=== PATIENT | male | born 1940 | race Caucasian/White ===

== ENCOUNTER 2017-02-25 08:00 | Outpatient (RCR) | payer MEDICARE, OTHER ==
[2017-02-18 08:23] VITALS: BP 154/79
[2017-02-18 08:48] LABS: PLATELET COUNT, AUTOMATED 213 K/uL (150-450)
[~2017-02-25] VITALS: Ht 182.9 cm; Wt 107.4 kg
[~2017-02-25 08:00] MED LIST: ALL100 PO; ASPI-715 PO; DEXTROSE 5%(*) 100 ML BAG 100 ML IVPB PRN; EZET1TAB55 PO; LIDOCAINE/SOD BICARB 8.4% SYR ID PRN; NS(*) 0.9% 100 ML BAG 100 ML IVPB PRN
[2017-02-25 08:17] VITALS: BP 158/75
[2017-02-25] MEDS ORDERED: INFLIXIMAB IVPB ONE (09:30)
[2017-02-25] MEDS ORDERED: NS 0.9% IVPB ONE (09:30)
[2017-02-25 11:50] VITALS: BP 151/77
[2017-04-29 08:08] VITALS: BP 145/74
[2017-04-29] MEDS ORDERED: INFLIXIMAB IVPB ONE (09:30)
[2017-04-29] MEDS ORDERED: NS 0.9% IVPB ONE (09:30)
== END 2017-05-18 ==
LOC: SPU 08:00
PROVIDERS: ATTEND Internal Medicine Gastroenterology
DX: K50.80 Crohn's disease of both small and large intestine without complications (principal)
CPT/HCPCS: 85025; 96413; 96415; J1745; J7050; 82040; 82247; 82310; 82374; 82435; 82565; 82947; 84075; 84132; 84155; 84295; 84450; 84460; 84520

== ENCOUNTER → 2017-08-10 | Outpatient (CLI) | payer MEDICARE, OTHER ==
[~2017-08-10] MED LIST changes: +AMLO1TAB52 PO; +ATOR40TA24 PO; -DEXTROSE 5%(*) 100 ML BAG 100 ML IVPB PRN; +FENO45CA; +IOPAMIDOL 76% 75 ML INFUS BTL 75 ML ONE; -LIDOCAINE/SOD BICARB 8.4% SYR ID PRN; -NS(*) 0.9% 100 ML BAG 100 ML IVPB PRN; +OLME1TAB60 PO
--- NOTE | 2017-08-10 11:44 | RADIOLOGY IMAGING REPORT ---
FAC[place] [facility] [place] NAME: Baljeet Ingram : 1940 MR: [id number] V: [id number] EXAM DATE: ORDERING PHYSICIAN: BRIONNA BRAVO TECHNOLOGIST: Location: [facility] Patient: Baljeet Ingram : 1940 Visit/Account:[id number] Date of Sevice: 08/10/2017 CT abdomen with IV contrast History: LEFT lower quadrant abdominal pain. Diverticulosis. COMPARISON STUDIES: CT abdomen and pelvis enterography 07/02/2015, CT abdomen and pelvis 01/14/2014. TECHNIQUE: Axial CT images were obtained through the abdomen during injection of nonionic iodinated intravenous contrast. Reformatted coronal and sagittal images were also obtained. Contrast: 78 ml of Isovue-370 IV contrast. One of the following dose optimization techniques was utilized in the performance of this exam: Autom ated exposure control; adjustment of the mA and/or kV according to the patient's size; or use of an i terative reconstruction technique. Specific details can be referenced in the facility's radiology C T exam operational policy. FINDINGS: Chest bases: Left lower lobe noncalcified 3 mm pulmonary nodule abutting the major fissure, image 1, unchanged from 01/2014. Moderate trivessel coronary artery calcifications. Liver: Hypodensity in the liver, image 43, unchanged. Gallbladder and bile ducts: Gallbladder is present. Bile ducts are normal caliber. Spleen: size is normal. 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 Kidneys: There are are left kidney lower pole peripelvic cysts. Bowel and mesenteries: Diffuse colonic diverticulosis affecting the ascending, transverse, and desce nding colon, without findings of acute inflammation. Terminal ileum is distended, featureless, and ne ural fat, compatible with Crohn's disease. Ascites: None Vessels: Moderate aortic and common iliac calcification. A left retroaortic renal vein is noted. Musculoskeletal: Negative Body wall: negative Lymph node assessment: negative IMPRESSION: 1. Colonic diverticulosis without findings of diverticulitis in the abdomen, however the distal desce nding and sigmoid colon was not evaluated on this study. The patient will be recalled, and additional imaging through the pelvis will be completed. 2. Terminal ileum CT findings compatible with Crohn's disease. 3. Other chronic findings are unchanged. Results were discussed with BRIONNA BRAVO at 08/10/2017 11:41 AM. Report Dictated By: Christiane Tyler MD at 08/10/2017 11:15 AM Report E-Signed By: Christiane Tyler MD at 08/10/2017 11:41 AM WSN:[id number]
--- NOTE | 2017-08-10 12:29 | RADIOLOGY IMAGING REPORT ---
FACILITY: [facility] PATIENT NAME: Baljeet Ingram : 1940 MR: [id number] V: [id number] EXAM DATE: ORDERING PHYSICIAN: BRIONNA BRAVO TECHNOLOGIST: Location: [facility] [place] Patient: Baljeet Ingram : 1940 Visit/Account:[id number] Date of Sevice: 08/10/2017 EXAMINATION: CT Pelvis without Contrast HISTORY: Left lower quadrant abdominal pain. TECHNIQUE: Spiral scan was through the pelvis without intravenous contrast. Dose Lowering Technique: One of the following dose optimization techniques was utilized in the performance of this exam: Autom ated exposure control; adjustment of the mA and/or kV according to the patient's size; or use of an i terative reconstruction technique. Specific details can be referenced in the facility's radiology C T exam operational policy. COMPARISON STUDIES: CT abdomen, 08/10/2017, CT abdomen and pelvis 04/08/2014. FINDINGS: Pelvic structures: Enlarged prostate gland produces an inferior impression upon the bladder. Prost ate gland measures 5.5 x 5 x 6 cm. Partially filled bladder contains radiopaque contrast from CT abdo men with IV contrast earlier today. Bowel / peritoneum / mesenteries: Short segment of upper sigmoid colon in the left lower abdominal qu adrant has thickened wall where there are several diverticula. Pericolonic fat stranding and haziness is seen. There is no extraluminal gas or abscess. A few lower sigmoid colon diverticula are unaffect ed. Featureless terminal ileum has diffuse mural fat, compatible with Crohn's disease. Vessels: Moderate calcification of the abdominal aorta and common iliac arteries. A retroaortic left renal vein is noted. Kidneys: Radiopaque contrast is seen within the central renal collecting system and ureters. There is extrinsic mass effect produced upon the left renal infundibula by several lower pole peripelvic cyst s. Musculoskeletal / Body wall: moderate L4-5 degenerative disc change. Lymph node assessment: Negative IMPRESSION: 1. Upper sigmoid colon diverticulitis, without perforation or abscess. 2. Prostate gland enlargement is unchanged from 03/2014. Results were discussed with BRIONNA BRAVO at 08/10/2017 12:15 PM. Report Dictated By: Christiane Tyler MD at 08/10/2017 12:18 PM Report E-Signed By: Christiane Tyler MD at 08/10/2017 12:25 PM WSN:[id number]
== END ==
LOC: CT 08:43
PROVIDERS: ATTEND Nurse Practitioner Family
DX: K57.30 Diverticulosis of large intestine without perforation or abscess without bleeding (principal); N40.0 Benign prostatic hyperplasia without lower urinary tract symptoms
CPT/HCPCS: 72192; 74160; Q9967

== ENCOUNTER 2017-08-26 08:12 | Outpatient (RCR) | payer MEDICARE, OTHER ==
[2017-07-01 08:13] VITALS: BP 135/67
[2017-07-01] MEDS: NS(*) 0.9% 100 ML BAG 100 ML IVPB PRN (08:20)
[~2017-08-26 08:12] MED LIST changes: +ACETAMINOPHEN 500 MG TAB PO PRN; +DEXTROSE 5%(*) 100 ML BAG 100 ML IVPB PRN; +INFLIXIMAB DYYB IV ONE; -IOPAMIDOL 76% 75 ML INFUS BTL 75 ML ONE; +LIDOCAINE/SOD BICARB 8.4% SYR ID PRN; +LORATADINE 10 MG TAB PO PRN; +NS 0.9% IV ONE; +diphenhydrAMINE 50 MG/ML VIAL IVP PRN
[2017-08-26] MEDS: NS(*) 0.9% 100 ML BAG 100 ML IVPB PRN (08:30)
[2017-08-26 08:31] VITALS: BP 145/79
[2017-08-26] MEDS ORDERED: LORATADINE 10 MG TAB PO PRN (09:15)
[2017-08-26] MEDS ORDERED: NS 0.9% IV ONE (09:20)
[2017-08-26] MEDS ORDERED: INFLIXIMAB DYYB IV ONE (09:20)
[2017-08-26 16:36] VITALS: BP 129/65
== END 2017-08-31 13:54 | disposition home or self-care (01) ==
LOC: SPU 08:12
PROVIDERS: ATTEND Internal Medicine Gastroenterology
DX: K50.80 Crohn's disease of both small and large intestine without complications (principal)
CPT/HCPCS: 85027; 96365; 96366; 96375; 96413; 96415; J1200; J7050; Q5103; 82040; 82247; 82310; 82374; 82435; 82565; 82947; 84075; 84132; 84155; 84295; 84450; 84460; 84520

== ENCOUNTER 2017-12-22 08:15 | Outpatient (RCR) | payer MEDICARE, OTHER ==
[2017-10-27 08:22] VITALS: BP 146/81
[2017-10-27] MEDS: NS(*) 0.9% 100 ML BAG 100 ML IVPB PRN (08:45)
[2017-10-27 08:47] LABS: PLATELET COUNT, AUTOMATED 260 K/uL (150-450)
[2017-10-27 12:05] VITALS: BP 135/65
[~2017-12-22 08:15] MED LIST changes: -diphenhydrAMINE 50 MG/ML VIAL IVP PRN
[2017-12-22 08:18] VITALS: BP 146/80
[2017-12-22] MEDS: NS(*) 0.9% 100 ML BAG 100 ML IVPB PRN (08:21)
[2017-12-22] MEDS ORDERED: INFLIXIMAB DYYB IV ONE (09:00)
[2017-12-22] MEDS ORDERED: NS 0.9% IV ONE (09:00)
[2017-12-22 10:53] VITALS: BP 135/69
== END 2018-01-24 ==
LOC: SPU 08:15
PROVIDERS: ATTEND Internal Medicine Gastroenterology
DX: K50.90 Crohn's disease, unspecified, without complications (principal)
CPT/HCPCS: 85025; 86140; 96361; 96365; 96366; 96413; 96415; J7050; Q5103; 82040; 82247; 82310; 82374; 82435; 82565; 82947; 84075; 84132; 84155; 84295; 84450; 84460; 84520

== ENCOUNTER 2018-05-01 09:17 | Outpatient (RCR) | payer MEDICARE, OTHER ==
[2018-02-16 08:23] VITALS: BP 153/78
[2018-02-16] MEDS: NS(*) 0.9% 100 ML BAG 100 ML IVPB PRN (08:26)
[2018-02-16 08:33] LABS: PLATELET COUNT, AUTOMATED 245 K/uL (150-450)
[2018-02-16 12:11] VITALS: BP 134/73
[~2018-05-01 09:17] MED LIST changes: +CETIRIZINE HCL 10 MG TAB PO PRN; -INFLIXIMAB DYYB IV ONE; +INFLIXIMAB IVPB ONE; -LORATADINE 10 MG TAB PO PRN; -NS 0.9% IV ONE; +NS 0.9% IVPB ONE
[2018-05-01 09:25] VITALS: BP 155/75
[2018-05-01] MEDS: NS(*) 0.9% 100 ML BAG 100 ML IVPB PRN (10:19)
[2018-05-01] MEDS ORDERED: NS 0.9% IVPB ONE (10:30)
[2018-05-01] MEDS ORDERED: INFLIXIMAB IVPB ONE (10:30)
== END 2018-05-16 ==
LOC: SPU 09:17
PROVIDERS: ATTEND Internal Medicine Gastroenterology
DX: K50.90 Crohn's disease, unspecified, without complications (principal)
CPT/HCPCS: 96365; 96366; J1745; J7050; 82040; 82247; 82310; 82374; 82435; 82565; 82947; 84075; 84132; 84155; 84295; 84450; 84460; 84520; 85025; 86140; 96413; 96415

== ENCOUNTER 2018-06-23 13:59 | Outpatient (RCR) | payer MEDICARE, OTHER ==
[~2018-06-23 13:59] MED LIST changes: -ACETAMINOPHEN 500 MG TAB PO PRN; -CETIRIZINE HCL 10 MG TAB PO PRN; -DEXTROSE 5%(*) 100 ML BAG 100 ML IVPB PRN; -INFLIXIMAB IVPB ONE; -LIDOCAINE/SOD BICARB 8.4% SYR ID PRN; -NS 0.9% IVPB ONE
== END 2018-06-26 17:05 | disposition home or self-care (01) ==
LOC: SPU 13:59
PROVIDERS: ATTEND Internal Medicine Gastroenterology
DX: Z02.9 Encounter for administrative examinations, unspecified (principal)

== ENCOUNTER 2018-06-28 07:51 | Outpatient (RCR) | payer MEDICARE, OTHER ==
[~2018-06-28 07:51] MED LIST changes: +DEXTROSE 5%(*) 100 ML BAG 100 ML IVPB PRN; +LIDOCAINE/SOD BICARB 8.4% SYR ID PRN
[2018-06-28 08:16] VITALS: BP 160/79
[2018-06-28 08:32] LABS: PLATELET COUNT, AUTOMATED 261 K/uL (150-450)
[2018-06-28] MEDS ORDERED: CETIRIZINE HCL 10 MG TAB PO PRN (08:35)
[2018-06-28] MEDS ORDERED: ACETAMINOPHEN 500 MG TAB PO PRN (08:35)
[2018-06-28] MEDS: NS(*) 0.9% 100 ML BAG 100 ML IVPB PRN (08:54)
[2018-06-28] MEDS ORDERED: INFLIXIMAB IVPB ONE (09:30)
[2018-06-28] MEDS ORDERED: NS 0.9% IVPB ONE (09:30)
[2018-06-28 11:42] VITALS: BP 147/73
[2018-08-23 08:08] VITALS: BP 134/77
[2018-08-23 08:30] LABS: PLATELET COUNT, AUTOMATED 247 K/uL (150-450)
[2018-08-23] MEDS: NS(*) 0.9% 100 ML BAG 100 ML IVPB PRN (08:44)
[2018-08-23] MEDS ORDERED: INFLIXIMAB IVPB ONE (09:00)
[2018-08-23] MEDS ORDERED: NS 0.9% IVPB ONE (09:00)
== END 2018-09-25 ==
LOC: SPU 07:51
PROVIDERS: ATTEND Internal Medicine Gastroenterology
DX: K50.90 Crohn's disease, unspecified, without complications (principal)
CPT/HCPCS: 85025; 86140; 86480; 96365; 96366; 96413; 96415; J1745; J7050; 82040; 82247; 82310; 82374; 82435; 82565; 82947; 84075; 84132; 84155; 84295; 84450; 84460; 84520